=== PATIENT | male | born 1960 | race Caucasian/White ===

== ENCOUNTER 2016-11-08 14:39 | Inpatient (IN) | payer OTHER ==
[~2016-11-08] VITALS: Ht 189.2 cm; Wt 73.6 kg
--- NOTE | ~2016-11-08 | ECH ---
Transthoracic Echocardiography Report (TTE) Demographics Patient Name IAN ESPINOZA Date of Study 11/09/2016 Patient Number [id number] Visit Number [id number] Date of 1960 Room Number 412 Accession Number [id number] Gender Male Age 56 year(s) Referring King Donnell Solomon MD House Cleaner Supervisor Mariposa Alas [facility] Physician Nathan Mcclellan MD Physician Interpreting ermelinda Rutledge Cigarette And Filter Chief Inspector Physician MD Supervising Ordering Physician Nathan Mcclellan MD, MD/[facility] Nurse Stress Guest Room Attendant Conclusions Summary Technically fair exam. The estimated left ventricular ejection fraction is 60-65%. Diastolic assessment reveals normal relaxation. No significant valvular abnormalities. Procedure Type of Study TTE procedure:Echo Complete SF. Procedure Date Date: 11/09/2016 Start: 10:52 AM Technical Quality: Fair due to poor acoustical window. Indications:Hypertension and Coronary artery disease. Additional Indications:NSTEMI Appropriate Use Criteria: 9 Height: 75 inches Weight: 165 pounds BSA: 2.02 m Rhythm: Within normal limits HR: 58 bpm BP: 96/61 mmHg M-Mode/2D Measurements LV Diastolic Dimension: 3.94 cm LV Systolic Dimension: 3.13 cm LV Septum Diastolic: 0.8 cm LV PW Diastolic: 0.98 cm AO Root Dimension: 3.12 cm Cardiac Output: 1.9 l/min LA Dimension: 3.2 cm Cardiac Index: 0.94 l/min*m LA volume index: 20 ml/m LVOT: 1.95 cm RV Base: 4.5 cm LVOT VTI: 11 cm RV Mid: 2.9 cm LV Stroke volume: 32.83 ml RV Length: 6.4 cm LV Stroke volume index: 16.25 ml/m Doppler Measurements AV Peak Velocity: 0.9 m/s MV Peak E-Wave: 0.54 m/s AV Peak Gradient: 3.24 mmHg MV Peak A-Wave: 0.46 m/s AV Mean Gradient: 1.93 mmHg MV E/A Ratio: 1.19 LVOT Peak Velocity: 0.57 m/s MV P1/2t: 108.2 msec AV Area (Continuity):2.01 cm MV Deceleration Time: 373 msec MV Area (PHT): 2.03 cm PV Peak Velocity: 0.85 m/s PV Peak Gradient: 2.86 mmHg RA Area: 13.99 cm Findings Left Ventricle The left ventricle is normal in size . Diastolic assessment reveals normal relaxation. Right Ventricle Normal right ventricle structure and function. Left Atrium Normal left atrial size. Right Atrium Normal right atrial size. Mitral Valve Normal mitral valve structure and function. Trivial mitral regurgitation by color Doppler. Aortic Valve The aortic valve was not well imaged. Tricuspid Valve Normal tricuspid valve structure and function. Pulmonic Valve Normal pulmonic valve structure and function. Pericardial Effusion No evidence of pericardial effusion. Miscellaneous Visualized portions of the aortic root and ascending aorta appear normal in size. Pleural Effusion No evidence of pleural effusion. Contractility Score LV regional wall motion:(0-Non visualized 1-Normal 2-Hypokinesis 3-Akinesis 4-Dyskinesis 5-Aneurysm) Signature
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
[2016-11-10] MEDS ORDERED: TYLENOL DPS325 MG PO (20:03)
[2016-11-10] MEDS ORDERED: ASPIRIN EC81 MG PO (20:04)
[2016-11-10] MEDS ORDERED: ATORVASTATIN CA40 MG PO (20:04)
[2016-11-10] MEDS ORDERED: SYMBICORT160 MCG/6 IH (20:04)
[2016-11-10] MEDS ORDERED: NORVASC2.5 MG PO (20:04)
[2016-11-10] MEDS ORDERED: NEURONTIN DPS600 MG PO (20:04)
[2016-11-10] MEDS ORDERED: PROVENTIL HFA6.7 GM IH (20:04)
[2016-11-10] MEDS ORDERED: KEPPRA DPS500 MG PO (20:05)
[2016-11-10] MEDS ORDERED: MOTRIN-DPS600 MG PO (20:05)
[2016-11-10] MEDS ORDERED: THERA-M CAPLET1 EAC1 PO (20:06)
[2016-11-10] MEDS ORDERED: SYNTHROID DPS0.1 MG PO (20:06)
[2016-11-10] MEDS ORDERED: ZESTRIL DPS10 MG PO (20:06)
[2016-11-10] MEDS ORDERED: [UNRECOGNIZED DRUG - OTHER] NS (20:07)
[2016-11-10] MEDS ORDERED: SPIRIVA18 MCG PO (20:07)
[2016-11-10] MEDS ORDERED: METOPROLOL TART25 MG PO (20:08)
[2016-11-10] MEDS ORDERED: VIBRAMYCIN-DPS100 M2 PO (20:08)
[2016-11-10] MEDS ORDERED: DELTASONE DPS10 MG PO (20:10)
--- NOTE | 2016-11-12 08:56 | ER ---
ADMIT: 11/08/2016 RM/LOC: 412 [facility] MR#: [id number] [address] [place], [place] [address] IAN ESPINOZA [address] [place] [address] Emergency Room Report SEX: M AGE: 56 : 1960 DATE: 11/08/2016 TIME: 1439 hours. Please refer to my T-sheet for complete H and P. HISTORY OF PRESENT ILLNESS: Briefly, the patient is a 56-year-old, who was sent over from the [facility] for chest discomfort, pressure across his chest. He has a known history of cardiac disease. He has had a stent. He also has COPD. He quit smoking about a year ago. He was seen over there and transferred here. He says he is coughing up phlegm and very congested. PHYSICAL EXAMINATION: VITAL SIGNS: Blood pressure 116/90, pulse 82, respirations 12, temp 97.8, and saturating 92% on 2 L. GENERAL: In no acute distress. HEENT: Grossly normal. LUNGS: Coarse with some wheezes. HEART: Regular. ABDOMEN: Soft. SKIN: No rash. EMERGENCY DEPARTMENT COURSE: EKG was sinus rhythm, rate 84, no acute changes. CTA revealed no PE, but swollen lymph nodes and thickening with bronchitis or early pneumonia diagnosis. CBC normal. Chemistries normal except troponin was slightly up at 0.84. Lactate was normal. Blood cultures x2 were sent. Coags were normal. We started antibiotics. He had [address] We gave him Decadron 10 IV and DuoNeb. He was improved. I talked to Dr. Evans, who will admit. ASSESSMENT: 1. Chest pain, atypical. 2. Slightly elevated troponin. 3. Early pneumonia. PLAN: Admit to the hospital. Benito Altamirano MD/ chad JOB #: [id number] CC: Emile Evans MD, Attending Physician Emile Evans MD, Family Physician
--- NOTE | 2016-11-17 13:01 | DS ---
ADMIT: 11/08/2016 RM/LOC: 412 [facility] MR#: [id number] [address] [place] [phone] PASTOR ESPINOZA [address] [place] [address] Discharge Summary SEX: M AGE: 56 : 1960 ADMISSION DATE: 11/08/2016 DISCHARGE DATE: 11/10/2016 FINAL DIAGNOSES: 1. COPD (chronic obstructive pulmonary disease) exacerbation. 2. Community-acquired pneumonia. 3. Coronary artery disease. 4. Type 2 demand ischemia. REASON FOR ADMISSION: Please H and P. 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 HOSPITAL COURSE: Admitted to the service of [facility] under the care of myself, Emile Evans MD. Did receive admission secondary to COPD exacerbation as well as chest pain. Initiated on heparin secondary to feeling of new ST-segment depressions in the precordial leads as well as some mild elevation of troponins. Receives Cardiology consultation. Improves dramatically from a respiratory standpoint with steroids and antibiotics. Cardiology did review the echo and felt this was not necessarily a true myocardial non ST-segment elevated myocardial infarction but was secondary to type 2 demand ischemia secondary to chronic obstructive pulmonary disease exacerbation. He is taken off his heparin. He is titrated on to Lopressor. We do have to back off his Norvasc the day of discharge as the new blood pressure medication with Lopressor did cause some lower blood pressures. However, he is doing well with complete resolution of his symptoms and he will discharge to home. DISCHARGE CONDITION: Stable. ADMIT: 11/08/2016 RM/LOC: 412 [facility] MR#: [id number] [address] [place] [phone] PASTOR ESPINOZA [address] [place] [address] Discharge Summary SEX: M AGE: 56 : 1960 DISPOSITION: Home. DISCHARGE MEDICATIONS: See medication reconciliation, reviewed and accurate. DISCHARGE INSTRUCTIONS: Discharged to home on the above medication reconciliation. Follow up with his primary care doctor in one weeks' time. He was given a transfer packet as he is going to be establishing with Cardiology at the [facility] in 1-2 weeks time as well. Discussed the plan with the patient who expressed understanding, was in agreement and had no further questions. Emile Evans MD/ vdg JOB #: [id number] CC: Emile Evans MD, Attending Physician Emile Evans MD, Family Physician
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
== END 2016-11-10 10:26 | disposition home or self-care (01) | DRG 190 ==
LOC: ER 14:39 → 4PCU 16:20
PROVIDERS: ADMIT Internal Medicine
DX: J44.0 Chronic obstructive pulmonary disease with (acute) lower respiratory infection (principal); J18.9 Pneumonia, unspecified organism; I24.8 Other forms of acute ischemic heart disease; R56.9 Unspecified convulsions; J44.1 Chronic obstructive pulmonary disease with (acute) exacerbation; R09.02 Hypoxemia; I69.398 Other sequelae of cerebral infarction; I25.10 Atherosclerotic heart disease of native coronary artery without angina pectoris; I10 Essential (primary) hypertension; E78.5 Hyperlipidemia, unspecified; M54.9 Dorsalgia, unspecified; G89.29 Other chronic pain; G62.9 Polyneuropathy, unspecified; E03.9 Hypothyroidism, unspecified; I25.2 Old myocardial infarction; Z95.5 Presence of coronary angioplasty implant and graft; Z87.891 Personal history of nicotine dependence; Z87.11 Personal history of peptic ulcer disease; Z87.442 Personal history of urinary calculi; Z96.653 Presence of artificial knee joint, bilateral; Z79.82 Long term (current) use of aspirin